=== PATIENT | female | born 1945 | race Caucasian/White ===

== ENCOUNTER 2021-04-08 16:10 | Outpatient (CLI) | payer MEDICARE | END 2021-04-08 16:11 | disposition home or self-care (01) | LOC: CSHRAD 16:10 | PROVIDERS: ATTEND Internal Medicine | DX: M25.572 Pain in left ankle and joints of left foot (principal) ==

== ENCOUNTER 2021-12-07 12:44 | Outpatient (CLI) | payer MEDICARE, OTHER | END 2021-12-07 12:45 | disposition home or self-care (01) | LOC: CSHMAMMO 12:44 | PROVIDERS: ATTEND Internal Medicine | DX: Z12.31 Encounter for screening mammogram for malignant neoplasm of breast (principal); Z13.820 Encounter for screening for osteoporosis; M85.832 Other specified disorders of bone density and structure, left forearm; Z80.3 Family history of malignant neoplasm of breast | CPT/HCPCS: 77063; 77067; 77080 ==